=== PATIENT | female | born 1965 | race Caucasian/White ===

== ENCOUNTER 2024-02-09 23:29 | Emergency (ER) | payer OTHER ==
[~2024-02-09] VITALS: Ht 154.9 cm; Wt 61.2 kg
[2024-02-09 23:50] VITALS: BP_SYST 148; PULSE 99; RESP 18; TEMP 98.1; O2SAT 97
[2024-02-10] MEDS: HYDROcodone/ACETAMIN 5-325 MG TAB (NORCO/ VICODIN) PO ONE (00:52)
[2024-02-10] MEDS ORDERED: HYDR-3917 PO (01:46)
[2024-02-10 01:56] VITALS: BP_SYST 135; PULSE 91; RESP 15; TEMP 97.9; O2SAT 100
== END 2024-02-10 01:56 | disposition home or self-care (01) ==
LOC: SED 23:29
DX: S62.101A Fracture of unspecified carpal bone, right wrist, initial encounter for closed fracture (principal); M25.561 Pain in right knee; M79.641 Pain in right hand; W01.0XXA Fall on same level from slipping, tripping and stumbling without subsequent striking against object, initial encounter; Y93.89 Activity, other specified; Y92.89 Other specified places as the place of occurrence of the external cause; Y99.8 Other external cause status
CPT/HCPCS: 73560; 99284